=== PATIENT | female | born 1990 | race Caucasian/White ===

== ENCOUNTER → 2016-08-22 | Outpatient (CLI) | payer OTHER ==
[~2016-08-22] MED LIST: FUROSEMIDE40 MG PO; MOBIC15 MG PO; NAPROSYN500 MG PO; OMNICEF300 M1 PO; POTASSIUM PO; SINGULAIR PO; ZYRTEC PO
== END | disposition home or self-care (01) ==
LOC: CBAR 14:06
DX: Z01.812 Encounter for preprocedural laboratory examination (principal); E66.01 Morbid (severe) obesity due to excess calories
CPT/HCPCS: 36415; 84443; 86677; G0463

== ENCOUNTER → 2016-09-19 | Outpatient (CLI) | payer OTHER ==
--- NOTE | ~2016-09-19 | CR97 ---
[facility] A Service of [facility] RADIOLOGY TEXT RESULTS PATIENT: CLAUDIA ONEAL LOCATION: [facility] : [birth year] UNIT #: [id number] AGE: [address]: Rex Sherman MD SEX: F ORDER DR: [id number] [facility] [address] [place], [place] [address] [id number] O MR#: [id number] Acc #: [id number] NAME: CLAUDIA ONEAL : 1990 SEX: F STUDY DATE/TIME: 09/19/2016 9:33 UNIT: [facility] ROOM: STUDY DESCRIPTION: CR Esophagram Attending Physician: Rex Sherman M.D. Referring Physician: Rex Sherman M.D. Ordering Physician: Rex Sherman M.D. Primary Care Physician: Moris De La Cruz M.D. MEDICAL IMAGING REPORT This report is preliminary unless electronic signature is present EXAM Barium esophagram. HISTORY Preop bariatric surgery, Lap-Band. FINDINGS Under fluoroscopic control, barium and crystals were administered orally. Swallowing was normal. Esophagus was of normal course, caliber, mucosal pattern, and distensibility. CONCLUSION Normal Dictated by... Rex Livingston M.D. THIS IS AN ELECTRONICALLY VERIFIED REPORT Rex Livingston M.D. at 09/22/2016 5:11 PM CRICKET/belen TD: 09/19/2016 12:36 JOB #: [id number] MEDICAL IMAGING REPORT Page 1 of 1 COPY
--- NOTE | ~2016-09-19 | CR63 ---
[facility] A Service of [facility] RADIOLOGY TEXT RESULTS PATIENT: CLAUDIA ONEAL LOCATION: [facility] : 90 UNIT #: [id number] AGE: [address]: Rex Sherman MD SEX: F ORDER DR: [id number] [facility] [address] [place], [place] [address] [id number] O MR#: [id number] Acc #: [id number] NAME: CLAUDIA ONEAL : 1990 SEX: F STUDY DATE/TIME: 09/19/2016 9:14 UNIT: [facility] ROOM: STUDY DESCRIPTION: CR Chest 2 View Attending Physician: Rex Sherman M.D. Referring Physician: Rex Sherman M.D. Ordering Physician: Rex Sherman M.D. Primary Care Physician: Moris De La Cruz M.D. MEDICAL IMAGING REPORT This report is preliminary unless electronic signature is present EXAM Chest, 09/19/2016, [facility] HISTORY 26-year-old woman; preop laparoscopic adjustable gastric band placement with possible repair of paraesophageal hernia. Patient short of air with activity. Former smoker. COMPARISON Chest 03/14/2012. FINDINGS Two-view chest demonstrates borderline heart size. Hilar structures are preserved. Bilateral lungs are clear. Costophrenic angles are clear. Large body habitus noted. IMPRESSION Stable chest with no acute chest finding. Dictated by... Rasheed Cadet M.D. THIS IS AN ELECTRONICALLY VERIFIED REPORT Rasheed Cadet M.D. at 09/19/2016 2:19 PM AZIZA/arya TD: 09/19/2016 12:03 JOB #: [id number] MEDICAL IMAGING REPORT Page 1 of 1 COPY
--- NOTE | ~2016-09-19 | EKG ---
PATIENT: CLAUDIA ONEAL UNIT #: [id number] Ventricular Rate: 76 BPM Atrial Rate: 76 BPM P-R Interval: 164 ms QRS Duration: 88 ms Q-T Interval: 414 ms QTC Calculation(Bezet): 465 ms P Munden: 33 degrees Calculated R Munden: 38 degrees Calculated T Munden: 34 degrees Diagnosis Line: Normal sinus rhythm Diagnosis Line: Normal ECG Diagnosis Line: No previous ECGs available Diagnosis Line: Confirmed by BOB HU MD ([id number]) on Diagnosis Line: 09/19/2016 4:22:56 PM INTERPRETING MD: FAVIAN
[2016-09-19 10:03] LABS: HEMATOCRIT 39.3 % (35.0-45.0); HEMOGLOBIN 12.9 gm/dL (12.0-16.0); MEAN CELL VOLUME 93.4 FL (83-96); MEAN CORPUSCULAR HEMOGLOBIN 30.7 PG (28-34); MEAN CORPUSCULAR HGB CONC 32.9 g/dL (30-36); MEAN PLATELET VOLUME 9.1 FL (6.5-11.5); RED BLOOD COUNT 4.21 X10e (3.90-5.30); WHITE BLOOD COUNT 7.7 X10e3 (4.0-10.5)
[2016-09-19 10:48] LABS: ALBUMIN SERUM 4.2 g/dL (3.5-5.0); BILIRUBIN,TOTAL 0.5 mg/dL (0.2-2.0); BUN/CREATININE RATIO 24.44; CALCIUM SERUM 9.1 mg/dL (8.4-10.2); CREATININE SERUM 0.9 mg/dL (0.6-1.4); GLOM FILT RATE Estimated 88.3 mL/min (>60); POTASSIUM 4.2 mmol/L (3.5-5.1)
== END | disposition home or self-care (01) ==
LOC: CRAD 09:07 → CAMB 10:00
PROVIDERS: Surgery
DX: Z01.818 Encounter for other preprocedural examination (principal)
CPT/HCPCS: 36415; 71020; 74220; 80053; 80061; 84443; 85027; 93005

== ENCOUNTER → 2016-10-01 | Day surgery (SDC) | payer OTHER ==
--- NOTE | ~2016-10-01 | CR7 ---
[facility] A Service of [facility] RADIOLOGY TEXT RESULTS PATIENT: CLAUDIA ONEAL LOCATION: [facility] : 90 UNIT #: [id number] AGE: [address]: Rex Sherman MD SEX: F ORDER DR: [id number] [facility] [address] [place], [place] [address] [id number] O MR#: [id number] Acc #: [id number] NAME: CLAUDIA ONEAL : 1990 SEX: F STUDY DATE/TIME: 10/01/2016 12:43 UNIT: [facility] ROOM: STUDY DESCRIPTION: CR Abdomen Single AP View Attending Physician: eRx Sherman M.D. Ordering Physician: Rex Sherman M.D. Primary Care Physician: Moris De La Cruz M.D. MEDICAL IMAGING REPORT This report is preliminary unless electronic signature is present EXAM KUB HISTORY Post Lap-Band surgery. TECHNIQUE A single AP view of the abdomen was obtained. FINDINGS Postoperative changes of Lap-Band surgery are noted. The angle of the band with respect to the long axis of the spine is 50 degrees. The bowel gas pattern is normal. IMPRESSION Satisfactory postoperative appearance. STAT * RESULT Dictated by... Miguel Ángel Kelly M.D. THIS IS AN ELECTRONICALLY VERIFIED REPORT Miguel Ángel Kelly M.D. at 10/01/2016 5:10 PM LONDON/candis TD: 10/01/2016 13:38 JOB #: [id number] MEDICAL IMAGING REPORT Page 1 of 1 COPY
--- NOTE | ~2016-10-01 | OR ---
Unit #: [id number] #: [id number] Patient: CLAUDIA ONEAL [id number] [address] [address] [id number] O MR#: [id number] NAME: CLAUDIA ONEAL ROOM: Date of Procedure: 10/01/2016 Admission Date: 10/01/2016 Surgeon: Rex Sherman M.D. : 1990 Attending Physician: Rex Sherman M.D. Primary Care Physician: Moris De La Cruz M.D. OPERATIVE REPORT PREOPERATIVE DIAGNOSIS Chronic morbid obesity, body mass index of 53. POSTOPERATIVE DIAGNOSES 1. Chronic morbid obesity, body mass index of 53. 2. Paraesophageal hiatal hernia. PROCEDURES PERFORMED 1. Laparoscopic adjustable gastric band. 2. Laparoscopic paraesophageal hernia repair. CV TECH Parker Jones M.D. ANESTHESIA General endotracheal anesthesia. ESTIMATED BLOOD LOSS Minimal. IV FLUIDS 800 crystalloid. COMPLICATIONS None. INDICATIONS FOR PROCEDURE The patient is an obese lady, who presents for laparoscopic adjustable gastric band. DESCRIPTION OF PROCEDURE The patient was taken to the operating room and placed in supine position. General anesthesia was induced. The abdomen was prepped and draped. A 3-cm incision was then made left of the midline. A 10-mm Visiport was then placed intraabdominal under direct vision. The abdomen was insufflated to 15 mmHg with CO2. The patient was then placed in a steep reversed Trendelenburg. General inspection of the abdomen revealed what appeared to be a paraesophageal hernia. This was identified with a defect at the diaphragm using anterior palpation with the instrument. We then made a small incision in the subxiphoid region. A Ellen liver retractor was then placed intraabdominal and used to retract the left lobe of the liver upward to further expose the paraesophageal hernia and GE Unit #: [id number] #: [id number] Patient: CLAUDIA ONEAL. I then placed a 5-mm port in the right upper quadrant, a 10-mm port in the left upper quadrant, and another 5-mm port in the left lower quadrant. The stomach was retracted medial and downward. Upon retracting the stomach, we took down the paraesophageal ligament, exposing the right and left fátima at the paraesophageal hernia. Any hernia sac was reduced. We then repaired the paraesophageal hernia using interrupted #0 Ethibond sutures in a [id number] type fashion. This formed a snug repair to the anterior esophagus. We then retracted the stomach medially and further exposed the angle of His using Bovie electrocautery. The stomach was then retracted laterally. We then took down the hepatogastric ligament with Bovie electrocautery. This exposed the right fátima. Using blunt dissection, I created a retrogastric tunnel from this point to the angle of His. The band was then placed intraabdominal through the 10-mm port site. This was then brought through the retrogastric tunnel in a pars flaccida technique. The band was then closed anteriorly to form a 20-mL to 25-mL anterior gastric pouch. The fundus was then secured to the anterior pouch to prevent movement around the stomach using two interrupted #0 Ethibond sutures. A third suture was then used as a gathering stitch from the lesser curve to the anterior stomach, gathering and imbricating the remaining fundus of the stomach. The tubing was then brought out through the midline 10-mm port site. All ports and the Ellen liver retractor were removed under direct vision with no evidence of abdominal hemorrhage. A polypropylene mesh was then secured to the posterior face of the laparoscopic band port. This was secured using #0 Ethibond suture. This was then cut to shape. The port was then connected to the tubing and placed into a subcutaneous pocket just anterior to the rectus sheath. Its position was then confirmed. All tubing was then placed intraabdominal. The wounds were then closed with interrupted 4-0 Vicryl. The patient tolerated the procedure well and was sent to the recovery room in good condition. Dictated by... Nicholas Hill/augustina TD: 10/01/2016 16:13 JOB #: [id number] OPERATIVE REPORT Page 1 of 1 X Rex Sherman MD PROCEDURE OPERATIVE NOTE
== END | disposition home or self-care (01) ==
LOC: CSUR 08:55
DX: E66.01 Morbid (severe) obesity due to excess calories (principal); K44.9 Diaphragmatic hernia without obstruction or gangrene; K21.9 Gastro-esophageal reflux disease without esophagitis; M19.90 Unspecified osteoarthritis, unspecified site; J45.909 Unspecified asthma, uncomplicated; G43.909 Migraine, unspecified, not intractable, without status migrainosus; G47.33 Obstructive sleep apnea (adult) (pediatric); F41.9 Anxiety disorder, unspecified; Z88.6 Allergy status to analgesic agent; Z87.891 Personal history of nicotine dependence; Z68.43 Body mass index [BMI] 50.0-59.9, adult; Z79.1 Long term (current) use of non-steroidal anti-inflammatories (NSAID); Z79.51 Long term (current) use of inhaled steroids; Z79.899 Other long term (current) drug therapy; Z90.49 Acquired absence of other specified parts of digestive tract; Z98.818 Other dental procedure status; Z98.890 Other specified postprocedural states
CPT/HCPCS: 74000; 84703; C1781; J0330; J0690; J1650; J1885; J2250; J2405; J2710; J3010; L8699